=== PATIENT | male | born 2000 | race African-American/Black ===

== ENCOUNTER 2020-05-07 22:17 | Emergency (ER) | payer SELFPAY ==
[~2020-05-07] VITALS: Ht 180.3 cm; Wt 76.6 kg
[2020-05-07 22:27] VITALS: BP 116/54; Ht 180.3 cm; Wt 76.6 kg
[2020-05-07] MEDS ORDERED: ANUSOL-HC25 MG RC (22:30)
== END 2020-05-07 23:46 | disposition home or self-care (01) ==
LOC: D.ER 22:17
DX: K64.4 Residual hemorrhoidal skin tags (principal)